=== PATIENT | male | born 1945 | race Caucasian/White ===

== ENCOUNTER 2023-05-28 13:19 | Emergency (ER) | payer MEDICARE, OTHER, SELFPAY ==
[2023-05-28] VITALS (7 sets, daily range): BP systolic 120–157; BP diastolic 79–109; PULSE 62–67; RESP 15–20; TEMP 36.3–36.8; O2SAT 93–98
--- NOTE | 2023-05-28 13:28 | ECG_ITS ---
SEE SCANNED COPY FOR CONFIRMED REPORT MTDD
[2023-05-28 14:12] LABS: Basophils Absolute Auto 0.1 K/mm3 (0.0-0.1); Basophils Percent Auto 1.1 % (0.2-1.2); Eosinophils Absolute Auto 0.3 K/mm3 (0-0.3); Eosinophils Percent Auto 3.3 % (0-4.4); Hematocrit 41.4 % (42.0-52.0); Hemoglobin 13.5 g/dL (14.0-18.0); Immature Granulocyte Absolute 0.02 K/mm3 (0.00-0.031); Immature Granulocyte Percent A 0.2 % (0-0.5); Lymphocytes Absolute Auto 1.94 K/mm3 (0.9-3.2); Mean Corpuscular HGB Conc 32.6 g/dl (32-36); Mean Corpuscular Hemoglobin 29.9 pg (26-34); Mean Corpuscular Volume 91.8 fl (80-100); Mean Platelet Volume 12.1 fl (7.4-10.4); Monocytes Absolute Auto 0.9 K/mm3 (0.1-0.6); Monocytes Percent Auto 9.4 % (2.6-8.5); Neutrophils Absolute Auto 6.4 K/mm3 (1.3-6.7); Platelet Count Result 222 k/mm3 (150-375); Red Blood Count 4.51 M/mm3 (4.6-6.20); Red Cell Distribution Width 14.8 % (11.5-14.5); White Blood Count 9.7 K/mm3 (4.5-10.0)
--- NOTE | 2023-05-28 14:16 | ED_ITS ---
HPI - Dizziness General Chief Complaint: Syncope Stated Complaint: Syncope History of Present Illness HPI Narrative: 77-year-old male with history of autonomic dysregulation presenting to the emergency department for evaluation after having an episode of low blood pressure. Patient's caregiver /sister states that this has happened fairly frequently and typically they are able to care for at home. Patient states this was a normal episode of his low blood pressure. Patient was not at home during the episode and the people here with for more concerned so ultimately to get transferred to the emergency depart by EMS. Upon arrival to the ED patient states he is back to his normal self and denies any complaints at this time. Patient is well-appearing. Patient does have an indwelling Doyle catheter and does report bacterial colonization, patient does follow-up with Urology. Patient denies any symptoms associated with a urinary tract infection. Patient states prior to the episode he was also his normal self. Related Data Allergies Allergy/AdvReac Type Severity Reaction Status Date / Time iohexol Allergy Unknown Verified 05/28/23 13:32 [From contrast - CT, X-RAY] levofloxacin [From Levaquin] Allergy Unknown Verified 05/28/23 13:33 wool Allergy Unknown Verified 05/28/23 13:33 Review of Systems Review of Systems: All systems reviewed & are unremarkable except as noted in HPI and below Exam Narrative: APPEARANCE: Well appearing, no pain, no distress, well-nourished. HEAD: normocephalic, atraumatic. EYES: PERRLA/EOMI, conjunctivae clear. NOSE: Normal no drainage EARS:TMS clear with good light reflex. THROAT: Pharynx clear, no exudate. NECK: Supple. No adenopathy, no masses. RESPIRATORY: Airway patent, respirations nonlabored. Clear to auscultation bilaterally, no rales, rhonchi, wheezing. CARDIOVASCULAR: Regular rate and rhythm without murmurs rubs or gallops. ABDOMINAL: Soft, nontender, nondistended, normal bowel sounds MUSCULOSKELETAL: Moves all extremities. Strength/ROM intact, No edema, No calf tenderness. NEURO: Alert. Cranial nerves II through XII intact. SKIN: Warm, dry. Normal Color Course Course Emergency Course: Patient felt back to his baseline and was discharged home Vital Signs Vital signs: Vital Signs Temperature 97.4 F L 05/28/23 13:19 Pulse Rate 63 05/28/23 13:19 Respiratory Rate 20 04/19/24 13:19 Pulse Oximetry 97 05/28/23 13:19 Oxygen Delivery Room Air 05/28/23 13:19 Temperature 98.3 F 05/28/23 16:15 Pulse Rate 64 05/28/23 16:15 Respiratory Rate 18 05/28/23 16:15 Blood Pressure 135/84 05/28/23 16:15 Pulse Oximetry 96 05/28/23 16:15 Oxygen Delivery Room Air 05/28/23 13:19 MDM - Dizziness MDM Narrative Medical decision making narrative: 77-year-old male present to the emergency department for evaluation after having an episode of low blood pressure. Patient does have autonomic dysreflexia. Patient had no acute abnormalities on his labs. Patient does feel that this was a typical episode of his autonomic dysreflexia and is requesting discharge home. Patient family are updated on the results of the workup. Differential Diagnosis Differential diagnosis: Likely benign paroxysmal positional vertigo, orthostatic hypotension and other Lab Data Attestation: I reviewed the patient's lab results. 05/28/23 14:07 05/28/23 14:07 Labs: Lab Results 05/28/23 Range/Units 14:07 WBC 9.7 (4.5-10.0) K/mm3 RBC 4.51 L (4.6-6.20) M/mm3 Hgb 13.5 L (14.0-18.0) g/dL Hct 41.4 L (42.0-52.0) % MCV 91.8 (80-100) fl MCH 29.9 (26-34) pg MCHC 32.6 (32-36) g/dl RDW 14.8 H (11.5-14.5) % Plt Count 222 (150-375) k/mm3 MPV 12.1 H (7.4-10.4) fl Immature Gran % (Auto) 0.2 (0-0.5) % Neut % (Auto) 66.0 (45.5-73.1) % Lymph % (Auto) 20.0 (18.3-44.2) % [place] % (Auto) 9.4 H (2.6-8.5) % Eos % (Auto) 3.3 (0-4.4) % Baso % (Auto) 1.1 (0.2-1.2) % Lymph # (Auto) 1.94 (0.9-3.2) K/mm3 [place] # (Auto) 0.9 H (0.1-0.6) K/mm3 Eos # (Auto) 0.3 (0-0.3) K/mm3 Baso # (Auto) 0.1 (0.0-0.1) K/mm3 Abs Immat Gran (auto) 0.02 (0.00-0.031) K/mm3 Absolute Neuts (auto) 6.4 (1.3-6.7) K/mm3 Absolute Nucleated RBC 0.000 (0.0-0.012) K/mm3 Nucleated RBC % 0.0 (0.0-0.2) % Sodium 134 L (137-145) mmol/L Potassium 3.9 (3.4-5.0) mmol/L Chloride 103 (98-107) mmol/L Carbon Dioxide 27 (22-30) mmol/L Anion Gap 4 (4-12) mmol/L BUN 13 (9-20) mg/dL Creatinine 0.60 L (0.7-1.3) mg/dL Estim Creat Clear Calc 93 ml/min Estimated GFR > 60 (59 - ) Glucose 129 H (65-110) mg/dL Calcium 8.9 (8.4-10.2) mg/dL Total Bilirubin 0.5 (0.2-1.3) mg/dL AST 19 (17-59) U/L ALT 16 (6-50) U/L Alkaline Phosphatase 94 (38-126) U/L Total Protein 7.0 (6.3-8.2) g/dL Albumin 3.8 (3.5-5.1) g/dL Discharge Plan Discharge Clinical Impression: Syncope due to orthostatic hypotension, Autonomic dysreflexia Patient Disposition: Home, Self-Care Condition: Stable Instructions: Antibiotic Form Additional Instructions: have close follow-up with your primary care physician. If you have any worsening symptoms then please call or return to the emergency department. Follow-up/Referrals: Carlos Enrique,Austin Martinez MD [Primary Care Provider] -
[2023-05-28 14:28] LABS: Alanine Aminotransferase 16 U/L (6-50); Albumin Level 3.8 g/dL (3.5-5.1); Alkaline Phosphatase 94 U/L (38-126); Anion Gap 4 mmol/L (4-12); Aspartate Amino Transferase 19 U/L (17-59); Bilirubin,Total 0.5 mg/dL (0.2-1.3); Blood Urea Nitrogen 13 mg/dL (9-20); Calcium 8.9 mg/dL (8.4-10.2); Carbon Dioxide 27 mmol/L (22-30); Chloride 103 mmol/L (98-107); Estimated CRCL calculation 93 ml/min; Estimated Glomerular Filt Rate > 60; Glucose 129 mg/dL (65-110); Potassium 3.9 mmol/L (3.4-5.0); Sodium 134 mmol/L (137-145)
== END 2023-05-28 16:16 | disposition home or self-care (01) ==
PROVIDERS: Emergency Provider Emergency Medicine; PCP Internal Medicine
DX: I95.1 Orthostatic hypotension (principal); G90.4 Autonomic dysreflexia; R94.31 Abnormal electrocardiogram [ECG] [EKG]; I44.0 Atrioventricular block, first degree
CPT/HCPCS: 36415; 80053; 85025; 93005; 99283